=== PATIENT | female | born 1975 | race Caucasian/White ===

== ENCOUNTER 2017-06-20 11:40 | Emergency (ER) | payer BC ==
--- NOTE | ~2017-06-20 | ER ---
PATIENT'S NAME: HEMANT PAINTING [facility] AGE: 41 Y [address] ROOM: [place] [id number] LOCATION: [facility] ADMIT DATE: 06/20/2017 ER/Outpatient Report DISCHARGE DATE: 06/20/2017 FAMILY PHYSICIAN: Tameka Purcell ATTENDING PHYSICIAN: Jann Fischer Time of Arrival: 1153 hours. Time of Evaluation: 12:00 Noon. CHIEF COMPLAINT: Right foot pain. HISTORY OF PRESENT ILLNESS: The patient states she has had pain in the right foot for the last 2 days. Pain is primarily on the ball of the right big toe. Denies having any trauma to her foot and states that when she is walking on it, it becomes swollen and sore. At night, she will put it up and ice it, and by morning then the swelling is down, however, she continues to have pain of it today. ALLERGIES: ON HER CHART AND REVIEWED BY ME. MEDICATIONS: On her chart and reviewed by me. PAST MEDICAL HISTORY: Hypertension, hypercholesterol. PAST SURGICAL HISTORY: Cholecystectomy, breast biopsy, hysterectomy. SOCIAL HISTORY: She denies use of tobacco, drugs, or alcohol. REVIEW OF SYSTEMS: Negative other than those mentioned in the HPI. PHYSICAL EXAMINATION: VITAL SIGNS: She weighs 109 kg, blood pressure is 159/90, pulse of 87, respirations 20, temperature of 97.2, O2 saturations 97% on room air. GENERAL: She is awake, alert, and oriented x4. SKIN: [place], warm, and dry. RESPIRATIONS: Even and nonlabored. Lung sounds are clear throughout. HEART: Regular rate and rhythm. She has strong right pedal pulses. No redness or swelling of the foot is noted. She does have some calluses formed PATIENT'S NAME: HEMANT PAINTING [facility] AGE: 41 Y [address] ROOM: [place], [place] [id number] LOCATION: [facility] ADMIT DATE: 06/20/2017 ER/Outpatient Report DISCHARGE DATE: 06/20/2017 FAMILY PHYSICIAN: Tameka Purcell ATTENDING PHYSICIAN: Jann Fischer on the bottom of the right great toe area. LABORATORY DATA AND X-RAYS: X-ray was completed. No bony abnormality is seen. IMPRESSION: Left foot pain, great toe pain. PLAN: Home, rest. Elevate the foot. Ice or heat to the toe area. Prescriptions were written for indomethacin and prednisone. If she continues to have pain, she is to follow up with her primary provider in 2-3 days. She verbalized understanding. FARIDEH TRIMBLE APRN FOR MD [facility] PARKER/porter /[id number] d: 06/21/17 0038 t: 06/29/17 1056, OUTPATIENT REPORT
[~2017-06-20 11:40] MED LIST: ADVIL200 MG PO; MULTI VITAMIN1 EACH PO; NORCO 5-325 MG1 TAB PO; NORVASC5 MG PO; TOPROL XL100 MG PO
== END 2017-06-20 13:10 | disposition disaster alternative care site (69) ==
LOC: GMED 11:40
DX: M79.674 Pain in right toe(s) (principal); M79.671 Pain in right foot; I10 Essential (primary) hypertension; E78.00 Pure hypercholesterolemia, unspecified; Z90.49 Acquired absence of other specified parts of digestive tract; Z90.710 Acquired absence of both cervix and uterus; Z88.0 Allergy status to penicillin; Z88.2 Allergy status to sulfonamides; Z79.899 Other long term (current) drug therapy; Z88.1 Allergy status to other antibiotic agents